=== PATIENT | male | born 1950 | race Caucasian/White ===

== ENCOUNTER 2021-09-12 10:00 | Outpatient (CLI) | payer MEDICARE, MEDICAID ==
[~2021-09-12] VITALS: Ht 170.2 cm; Wt 99.8 kg
== END 2021-09-12 11:00 | disposition home or self-care (01) ==
LOC: SLB 10:00 → SDS 14:24 → EDSTATUS 09-13 13:30
PROVIDERS: ATTEND Internal Medicine
DX: Z01.818 Encounter for other preprocedural examination (principal); M47.816 Spondylosis without myelopathy or radiculopathy, lumbar region; Z20.822 Contact with and (suspected) exposure to COVID-19
CPT/HCPCS: 36415

== ENCOUNTER 2021-09-26 07:58 | Day surgery (SDC) | payer MEDICARE, MEDICAID, SELFPAY ==
[~2021-09-26] VITALS: Ht 170.2 cm; Wt 99.8 kg
[2021-09-26] MEDS ORDERED: DIPHENHYDRAMINE INJ 50 MG/ML VIAL ONE ×2 (08:17→09:30)
[2021-09-26] MEDS ORDERED: MIDAZOLAM HCL 5 MG/5 ML VIAL ONE (08:18)
[2021-09-26] MEDS ORDERED: MIDAZOLAM HCL 5 MG/ML VIAL (VERSED) IV ONE (09:30)
[2021-09-26] MEDS ORDERED: LIDOCAINE 2%, 20 ML MDV ONE (09:30)
[2021-09-26] MEDS ORDERED: NS 1000 ML IV.SOLN IV ONE (09:30)
[2021-09-26] MEDS ORDERED: BUPIVACAINE /PF 0.25% 30 ML VIAL INJ ONE (09:30)
[2021-09-26] MEDS ORDERED: methylPREDNISolone ACETATE 80 MG/ML ONE (09:30)
[2021-09-26 10:53] VITALS: BP_SYST 119
== END 2021-09-26 10:50 | disposition home or self-care (01) ==
LOC: SDS 07:58 → SMU 07:59 → SDS 10:50
PROVIDERS: ATTEND Internal Medicine
DX: M47.816 Spondylosis without myelopathy or radiculopathy, lumbar region (principal); G89.4 Chronic pain syndrome; M51.86 Other intervertebral disc disorders, lumbar region
CPT/HCPCS: 36415; 64493; 82962; 87426; 94640; J1040; J1200; J2001; J2250 ×2; J3490; J7030; 76000